=== PATIENT | male | born 1980 | race Two or more races ===

== ENCOUNTER 2023-01-11 15:43 | Emergency (ER) | payer MEDICAID, OTHER ==
[~2023-01-11] VITALS: Ht 177.8 cm; Wt 75.5 kg
[2023-01-11] MEDS ORDERED: ACETAMINOPHEN 500 MG TAB PO ONE (16:15)
[2023-01-11 16:16] VITALS: BP 136/85; PULSE 90; RESP 16; TEMP 97.9; O2SAT 96
[2023-01-11] MEDS ORDERED: IBUP-1456 PO (16:44)
[2023-01-11] MEDS ORDERED: PRED20TA2 PO (16:44)
== END 2023-01-11 16:50 | disposition home or self-care (01) ==
LOC: ER 15:43
DX: G56.01 Carpal tunnel syndrome, right upper limb (principal); M25.532 Pain in left wrist
CPT/HCPCS: 29125